=== PATIENT | male | born 1960 | race Caucasian/White ===

== ENCOUNTER → 2016-10-20 | Outpatient (CLI) | payer MEDICARE, BC ==
[~2016-10-20] MED LIST: BARIUM SUSPENSION 2.1% (VANILLA SILQ) 450 ML PO ONE; CATHETER FLUSH 10 ML SYR IV PRN; IOHEXOL 350 MG/ML 100 ML (OMNIPAQUE 350) VIAL IV ONE; NS 100 ML (IVPB) BAG IV ONE; NS 50 ML (IVPB) BAG IV ONE
[2016-10-20 11:43] LABS: BLOOD UREA NITROGEN 8 MG/DL (7-18); BUN/CREATININE RATIO 9; CREATININE SERUM 0.85 MG/DL (0.60-1.30); GFR ESTIMATED > 60
--- NOTE | 2016-10-20 13:10 | Diagnostic Imaging Report ---
INDICATION: Prostate cancer. CT of the abdomen and pelvis obtained with IV contrast bolus. There is no prior study for comparison. FINDINGS: The visualized portions of the lung bases show no infiltrates. There is a tiny 3 mm nodule in the right lower lobe posteromedially, this is nonspecific. There is no pleural fluid or free air. Bony windows demonstrate an apparent old right-sided sacral fracture which appears healed. There are old bilateral fractures of the inferior rami and superior pubic rami. The liver and gallbladder appear unremarkable. The spleen, adrenals, and pancreas are normal. There is no retroperitoneal mass or adenopathy. There is no ascites or abnormal fluid collection. Kidneys bilaterally appear unremarkable. Visualized bowel loops appear nonspecific. Prostate gland shows mild irregularity but is not appreciably enlarged. There is no overt adenopathy in the pelvis. IMPRESSION: Old healed bilateral pelvic fractures. No abdominal or pelvic mass or adenopathy. Tiny 3 mm nodule in the right lung base, this only requires followup if the patient is high risk. Dictated by: Dictated on workstation # [id number]
--- NOTE | 2016-10-20 15:37 | Diagnostic Imaging Report ---
INDICATION: Prostate cancer. Whole body bone scan. 26.7 mCi of Tc99m MDP was given intravenously. Whole body bone scan was obtained after appropriate delay. There is activity in both kidneys and in the bladder. There is some increased activity in the right sternoclavicular joint. There is scoliosis of the spine. There is no abnormal uptake in the skeletal system suspicious for metastatic disease. IMPRESSION: Negative whole body bone scan. Dictated by: Dictated on workstation # [id number]
== END ==
LOC: CARD 10:56
PROVIDERS: ATTEND Urology
DX: C61 Malignant neoplasm of prostate (principal)
CPT/HCPCS: 36415; 74177; 78306; 82565; 84520

== ENCOUNTER 2016-11-08 14:08 | Outpatient (RCR) | payer MEDICARE, BC | END 2017-02-06 | disposition home or self-care (01) | LOC: ONC 14:08 | PROVIDERS: ATTEND Radiology Radiation Oncology | DX: C61 Malignant neoplasm of prostate (principal) ==

== ENCOUNTER → 2017-06-10 | Outpatient (CLI) | payer BC, MEDICARE ==
--- NOTE | 2017-06-10 11:32 | Diagnostic Imaging Report ---
PROCEDURE: MRI right joint upper extremity without contrast. TECHNIQUE: Multiplanar, multisequence non contrast-enhanced MRI of the right upper extremity was accomplished. INDICATION: Right shoulder pain, multiple injuries over the years. No prior surgery. COMPARISON: None. FINDINGS: No acute fracture or dislocation is seen in the right shoulder. There are severe degenerative changes in the right acromioclavicular joint with adjacent bone marrow edema and subcortical cystlike changes. This causes mass effect on the underlying myotendinous junction of the supraspinatus. There is a high-grade partial thickness tear at the footplate of the supraspinatus tendon measuring approximately 1.6 cm AP. This is at the articular surface. There is minimal thickening of the subacromial subdeltoid bursa without significant fluid appreciated. There is low-grade articular surface partial-thickness tearing of the distal infraspinatus tendon. The subscapularis tendon demonstrates mild tendinosis, but appears intact. The teres minor tendon is intact. The long head of the biceps tendon appears normal in course and signal. The glenoid labrum is suboptimally evaluated, however, there appears to be degenerative tearing. No large para-labral cyst is seen. The spinoglenoid and subscapular notches are clear. The acromion demonstrates a flat undersurface without significant hooking. The coracoclavicular and coracoacromial ligaments appear intact. The inferior glenohumeral ligament appears mildly thickened, but otherwise intact. The subcoracoid fat is clear. The soft tissues about the right shoulder appear normal without focal atrophy or edema seen. IMPRESSION: 1. High-grade partial-thickness tear at the footplate of the right supraspinatus tendon with low-grade partial thickness tear of the distal infraspinatus tendon. No muscular atrophy is seen. 2. 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 Dictated by: Dictated on workstation # [id number]
== END ==
LOC: RAD 09:07
PROVIDERS: ATTEND Orthopaedic Surgery
DX: S46.011A Strain of muscle(s) and tendon(s) of the rotator cuff of right shoulder, initial encounter (principal); S43.431A Superior glenoid labrum lesion of right shoulder, initial encounter; M19.011 Primary osteoarthritis, right shoulder
CPT/HCPCS: 73221

== ENCOUNTER → 2021-01-25 | Outpatient (CLI) | payer MEDICARE ==
[~2021-01-25] VITALS: Ht 175 cm; Wt 77.7 kg
[~2021-01-25] MED LIST changes: +ACETAMINOPHEN 500 MG TAB (TYLENOL) PO PRN; -BARIUM SUSPENSION 2.1% (VANILLA SILQ) 450 ML PO ONE; +CASIRIVIMAB/IMDEVIMAB 1,200 MG in NS (IVPB) 250 ML IV ONE; -CATHETER FLUSH 10 ML SYR IV PRN; +EPINEPHrine INJECTION 1 MG/ML AMP IM PRN; -IOHEXOL 350 MG/ML 100 ML (OMNIPAQUE 350) VIAL IV ONE; -NS 100 ML (IVPB) BAG IV ONE; -NS 50 ML (IVPB) BAG IV ONE; +ONDANSETRON 4 MG/2 ML (SDV) Z0FRAN IV PRN; +diphenhydrAMINE 50 MG/ML INJ (BENADRYL) IV PRN
[2021-01-25 11:31] VITALS: BP 140/72
[2021-01-25 12:55] VITALS: BP 130/77
== END ==
LOC: INFUSION 11:25
PROVIDERS: ATTEND Nurse Practitioner Family
DX: Z23 Encounter for immunization (principal); U07.1 COVID-19